=== PATIENT | female | born 1995 | race Caucasian/White ===

== ENCOUNTER → 2018-06-17 | Day surgery (SDC) | payer BC ==
[2018-06-11 13:36] VITALS: BMI 28.3
[~2018-06-17] MED LIST: SODIUM CHLORIDE 0.9% 1,000 ML IV SCH
[2018-06-17 08:40] VITALS: BP 110/57; PULSE 93; RESP 18; TEMP 97.8
== END ==
LOC: CATHEP 08:07
PROVIDERS: ATTEND Internal Medicine Clinical Cardiac Electrophysiology
DX: Z53.9 Procedure and treatment not carried out, unspecified reason (principal); R55 Syncope and collapse; R07.89 Other chest pain
CPT/HCPCS: 81025; 93660

== ENCOUNTER 2018-10-22 06:00 | Inpatient (IN) | payer BC, OTHER ==
[2018-10-22] MEDS ORDERED: METHYLERGONOVINE 0.2 MG/ML 1 ML AMP IM PRN (06:56)
[2018-10-22] MEDS ORDERED: OXYTOCIN 10 UNIT/ML 1 ML VIAL IM PRN (06:56)
[2018-10-22] MEDS ORDERED: TERBUTALINE 1 MG/ML VIAL SQ PRN (06:56)
[2018-10-22] MEDS ORDERED: CARBOPROST TROMETHAMINE 250 MCG/ML 1 ML AMP IM PRN (06:56)
[2018-10-22] MEDS ORDERED: LIDOCAINE 0.5% (PF) 5 MG/ML (50 ML SDV) SQ PRN (06:56)
[2018-10-22] MEDS ORDERED: OXYTOCIN 20 UNITS/1000 ML NS 1,000 ML IV SCH ×2 (07:00→22:45)
[2018-10-22] MEDS: LACTATED RINGERS 1,000 ML IV SCH ×3 (07:15→15:49)
[2018-10-22 07:17] VITALS: BMI 31.6
[2018-10-22 07:18] LABS: Basophils % (A) 0 %; Eosinophils # (A) 0.2 k/uL (0-0.7); Eosinophils % (A) 2 %; HCT 34.2 % (34.0-46.0); HGB 11.6 gm/dL (11.4-16.0); Lymphocytes # (A) 2.6 k/uL (1.0-4.8); Lymphocytes % (A) 21 %; MCH 27.3 pg (25.0-35.0); MCV 80.3 fL (80.0-100.0); Mean Platelet Volume 6.9; Monocytes # (A) 0.4 k/uL (0-1.0); Monocytes % (A) 3 %; Neutrophils # (A) 8.8 k/uL (1.3-7.7); Neutrophils % (A) 72 %; Platelet Count 303 k/uL (150-450); RBC 4.26 m/uL (3.80-5.40); RDW 14.4 % (11.5-15.5); WBC 12.1 k/uL (3.8-10.6)
[2018-10-22] MEDS ORDERED: BUTORPHANOL 1 MG/ML 1 ML VIAL IV PRN (08:45)
--- NOTE | 2018-10-22 08:50 | P.HPOB ---
History of Present Illness H&P Date: 10/22/18 Chief Complaint: 40-6/7 weeks, induction The patient is a 23-year-old 1 para 0 admitted at 40-6/7 weeks as determined by 25 week ultrasound. She is admitted for postdates induction with all signs reassuring. Her has been uncomplicated aside from late care having presented at approximately 25 weeks of . testing since her due date has been normal and the amniotic fluid index is normal as well. Group B strep status is negative. Obstetrical history: 1 para 0 with current statistics listed in history of present illness. EDC of 10/16/2018 was determined by a 25 week ultrasound. Laboratory workup done demonstrates a blood type of B+ with a negative antibody screen. Rubella status is immune. The remainder of the laboratory workup was within normal limits aside from an initial positive urine culture which was treated, and cured. One hour Glucola was within normal limits and group B strep status is negative. Gynecologic history: Unremarkable with no history of any infections to include STDs. Review of Systems Review of systems is confined to history of present illness. Past Medical History Additional Past Medical History / Comment(s): "fainting"; 06/2018 History of Any Multi-Drug Resistant Organisms: None Reported Past Surgical History: Appendectomy, Orthopedic Surgery Additional Past Surgical History / Comment(s): Elbow surgery Past Anesthesia/Blood Transfusion Reactions: No Reported Reaction Past Psychological History: Anxiety, Depression Smoking Status: Never smoker Past Alcohol Use History: None Reported Past Drug Use History: None Reported - Past Family History Mother Family Medical History: No Reported History Medications and Allergies Home Medications Medication Instructions Recorded Confirmed Type Pnv No.95/Ferrous Fum/Folic AC 1 each PO DAILY 10/22/18 10/22/18 History [ Multivitamin Tablet] Allergies Allergy/AdvReac Type Severity Reaction Status Date / Time No Known Allergies Allergy Verified 10/22/18 06:54 Exam Vital Signs Temp Pulse Resp BP Pulse Ox 10/22/18 06:53 97.4 F L 90 16 128/64 98 Intake and Output 10/21/18 10/22/18 10/22/18 22:59 06:59 14:59 Other: Weight 83.461 kg In general, this is a well-developed, well-nourished white female in no acute distress. Her heart has a regular rhythm and rate without murmur. Her lungs are clear to auscultation bilaterally in all duggan. Her abdomen is gravid, nondistended, has normal active bowel sounds, is soft, nontender, and without any palpable masses aside from uterine fundus. Her extremities are without any cyanosis, clubbing, or edema and are nontender to palpation bilaterally. Digital cervical examination on straights her cervix to be 2+ centimeters dilated, approximately 50% effaced, the vertex in presentation at -2-3 station. Artificial rupture of membranes is carried out demonstrating clear fluid. Results Result Diagrams: 10/22/18 07:00 Abnormal Lab Results - Last 24 Hours (Table) 10/22/18 Range/Units 07:00 WBC 12.1 H (3.8-10.6) k/uL Neutrophils # 8.8 H (1.3-7.7) k/uL Assessment and Plan (1) Post-dates Current Visit: Yes Status: Acute Code(s): O48.0 - POST-TERM SNOMED Code(s): 67560754 Plan: The patient is admitted for postdates induction of labor. She has had Pitocin augmentation started and undergone artificial rupture of membranes for clear fluid. She will have close maternal and surveillance and expectant management will be practiced. She is a good candidate for either IV or epidural analgesia, whichever she may choose.
[2018-10-22] MEDS ORDERED: SODIUM CHLORIDE 0.9% 100 ML BAG ONE (15:17)
[2018-10-22] MEDS ORDERED: ROPIVACAINE 5MG/ML 20ML VIAL ONE (15:17)
[2018-10-22] MEDS ORDERED: fentaNYL (PF) 50 MCG/ML 5 ML AMP ONE (15:17)
[2018-10-22] MEDS ORDERED: ceFAZolin 1,000 MG VIAL ONE (21:46)
[2018-10-22] MEDS ORDERED: ONDANSETRON 4 MG/2 ML VIAL ONE (21:46)
[2018-10-22] MEDS ORDERED: LACTATED RINGERS 1,000 ML BAG IV ONE (21:46)
[2018-10-22] MEDS ORDERED: OXYTOCIN 10 UNIT/ML 1 ML VIAL ONE (21:46)
[2018-10-22] MEDS ORDERED: LANOLIN CREAM 5 GM TUBE TOPICAL PRN (22:40)
[2018-10-22] MEDS ORDERED: NALOXONE 0.4 MG/ML 1 ML VIAL IV PRN (22:40)
[2018-10-22] MEDS ORDERED: diphenhydrAMINE 25 MG CAP PO PRN (22:40)
[2018-10-22] MEDS ORDERED: ZOLPIDEM 5 MG TAB PO PRN (22:40)
[2018-10-22] MEDS ORDERED: SIMETHICONE 80 MG CHEWABLE PO PRN (22:40)
[2018-10-22] MEDS ORDERED: ACETAMINOPHEN TAB 325 MG TAB PO PRN (22:40)
[2018-10-22] MEDS ORDERED: diphenhydrAMINE 50 MG/ML 1 ML VIAL IVP PRN ×2 (22:40)
[2018-10-22] MEDS ORDERED: diphenhydrAMINE 50 MG CAP PO PRN (22:40)
[2018-10-22] MEDS ORDERED: ONDANSETRON 4 MG/2 ML VIAL IVP PRN (22:40)
[2018-10-22] MEDS ORDERED: METOCLOPRAMIDE 5 MG/ML 2 ML VIAL IVP PRN (22:40)
[2018-10-22] MEDS ORDERED: HYDROcodone/APAP 7.5-325MG 1 EACH TAB PO PRN (22:40)
--- NOTE | 2018-10-22 22:50 | P.OP ---
Date of Procedure: 10/22/18 Preoperative Diagnosis: #1. 40-6/7 weeks, induction #2. Arrest of dilation and descent Postoperative Diagnosis: Same plus #3. occiput posterior, brow presentation Procedure(s) Performed: #1. Primary low-transverse section Anesthesia: epidural Surgeon: Cj Wood Customer Assistance Representative #1: Viola Martin Estimated Blood Loss (ml): 600 IV fluids (ml): 800 Urine output (ml): 400 Pathology: none sent Condition: stable Disposition: floor Operative Findings: Preoperatively, the patient progressed to approximately 6-7 cm with the station still at -3. She remained at that dilation and station for approximately 8-9 hours at which time the decision was made to proceed to the operating room for arrest of dilation and descent. There was a strong consideration for malposition. Intraoperatively, the patient was delivered of a viable 8 lbs. 11 oz. baby boy with Apgars of 7 at 1 minute and 9 at 5 minutes in the direct occiput posterior position with brow presenting to the pelvic outlet. A mighty Vac vacuum was needed to deliver the head and was incidentally placed near to the anterior portion of the head then the occiput as that was what was available in presentation in the pelvis. The placenta was delivered manually, intact, and grossly normal with a grossly normal three- vessel cord. The uterus, tubes, and ovaries were entirely normal to inspection. Description of Procedure: The patient was prepped and draped in usual fashion after epidural anesthesia was bolused by the anesthesiologist. A Pfannenstiel incision was made and extended into the abdominal cavity without difficulty. The bladder was noted to be well below the intended site of incision and the bladder peritoneum was left intact. A 2 cm incision was made in the transverse plane of the lower uterine segment to enter the uterus at which time clear fluid was again noted. The incision was extended in both directions bluntly. The head was encountered in the pelvis and delivered up to the incision at which time the angles were difficult to elevate the head through the incision. A mighty Vac vacuum was attached to the presenting portion and the incision and actually popped off twice while attempting to elevate the head. On the third attempt, the head was delivered through the incision in the direct occiput posterior position and it was noted that the brow had been the presenting part. Remainder of the was delivered onto the field after suctioning the nose and mouth. The cord was doubly clamped, cut, and the passed resuscitative measures with weight and Apgars as noted above. The placenta was delivered manually and intact as noted above. The uterus was exteriorized and the interior cavity of the uterus swept of any remaining placental or membranous fragments. The margins of the incision were grasped with Choi clamps and the incision closed in 2 layers. The first layer was a running locking stitch of 0 chromic catgut from margin to margin followed by a running imbricating layer of 0 chromic catgut from margin to margin. The posterior cul- de-sac was suctioned using a guard. The uterus was replaced within the abdominal cavity and the gutters were swept of any remaining blood, fluid, or clot. The incision was reexamined with some bleeding noted to be ongoing at the right side of the incision. This was made hemostatic with 2 figure-of- eight stitches of 0 chromic catgut. Once hemostasis had been established, the parietal peritoneum was reapproximated loosely in the layer of muscles examined and found to be hemostatic. Fascia was closed with 2 running stitches of 0 Vicryl proceeding from the lateral margins to the midpoint. The subcutaneous tissues were irrigated, made hemostatic with the Bovie, and reapproximated with a running stitch of 30 plain catgut. The skin was reapproximated with a running subcuticular stitch of 4-0 Vicryl followed by half-inch Steri-Strips placed with Mastisol. Estimated blood loss for the case is approximately 600 mL. There were no complications. All sponge, instrument, and needle counts were correct. Both mother and are resting comfortably in recovery.
[2018-10-22] MEDS: KETOROLAC 30 MG/ML 1 ML VIAL IVP PRN (23:32)
[2018-10-23] MEDS: LACTATED RINGERS 1,000 ML IV SCH (01:58)
[2018-10-23] MEDS: KETOROLAC 30 MG/ML 1 ML VIAL IVP PRN ×3 (05:18→23:20)
[2018-10-23 06:59] LABS: Basophils % (A) 0 %; Eosinophils # (A) 0.1 k/uL (0-0.7); Eosinophils % (A) 0 %; HCT 29.2 % (34.0-46.0); Lymphocytes # (A) 1.7 k/uL (1.0-4.8); Lymphocytes % (A) 11 %; MCH 26.6 pg (25.0-35.0); MCHC 33.1 g/dL (31.0-37.0); MCV 80.5 fL (80.0-100.0); Monocytes # (A) 0.4 k/uL (0-1.0); Monocytes % (A) 3 %; Neutrophils # (A) 12.2 k/uL (1.3-7.7); Neutrophils % (A) 84 %; Platelet Count 210 k/uL (150-450); RBC 3.63 m/uL (3.80-5.40); RDW 14.1 % (11.5-15.5); WBC 14.5 k/uL (3.8-10.6)
[2018-10-23 07:00] LABS: HGB 9.7 gm/dL (11.4-16.0)
[2018-10-23] MEDS ORDERED: NALOXONE 0.4 MG/ML 1 ML VIAL IV PRN (07:13)
[2018-10-23] MEDS ORDERED: MORPHINE SULFATE 2 MG/ML SYRINGE IVP PRN (07:13)
--- NOTE | 2018-10-23 07:15 | P.PN ---
Progress Note - Text Progress Note Date: 10/23/18 Postoperative day 1 status post section under epidural anesthesia, and epidural morphine given for postoperative analgesia, patient doing well, there is no anesthesia related complications, Patient had no headache, vital signs stable , Assessment and plan= postop day 1 status post , doing well there is no anesthesia related complication.
--- NOTE | 2018-10-23 08:51 | P.PNOBGPC ---
Subjective - Subjective Patient reports: Reports appetite normal, Reports voiding normally, Reports pain well controlled, Reports ambulating normally : doing well, nursing well Objective - Vital Signs Latest vital signs: Vital Signs Temp Pulse Resp BP Pulse Ox 10/23/18 08:00 97.7 F 76 15 107/60 10/23/18 04:00 98.5 F 81 16 107/67 10/23/18 00:45 98.5 F 73 16 117/61 10/23/18 00:15 99.1 F 77 16 116/58 10/22/18 23:45 99.0 F 81 16 115/69 97 10/22/18 23:30 99 16 120/73 10/22/18 23:15 87 16 129/78 100 10/22/18 23:00 98.9 F 83 16 125/74 98 10/22/18 22:45 98.8 F 99 16 122/71 99 Intake and Output 10/22/18 10/23/18 10/23/18 22:59 06:59 14:59 Intake Total 675 600 Output Total 1100 Balance 675 -500 Intake: IV 375 Lactated Ringers 1,000 ml 375 @ 125 mls/hr IV .Q8H [facility] Rx#:[id number] Oral 300 600 Output: Urine 1100 Other: Weight 83.461 kg - Exam Extremities: Present: normal Abdomen: Present: normal appearance, soft. Absent: distention, tenderness Incision: Present: normal, dry, intact Uterus: Present: normal, firm (The uterine fundus is tonic and nontender below the umbilicus.) - Labs Labs: Abnormal Lab Results - Last 24 Hours (Table) 10/23/18 Range/Units 06:22 WBC 14.5 H (3.8-10.6) k/uL RBC 3.63 L (3.80-5.40) m/uL Hgb 9.7 L D (11.4-16.0) gm/dL Hct 29.2 L (34.0-46.0) % Neutrophils # 12.2 H (1.3-7.7) k/uL Assessment and Plan (1) Post-dates Current Visit: Yes Status: Acute Code(s): O48.0 - POST-TERM SNOMED Code(s): 23509614 (2) S/P section Current Visit: Yes Status: Acute Code(s): Z98.891 - HISTORY OF UTERINE SCAR FROM PREVIOUS SURGERY SNOMED Code(s): 634836307 Plan: Continue routine postoperative care. She is receiving a regular diet this morning. I have strongly encouraged her to ambulate in the hallways at least 4 times daily. Possible discharge home tomorrow pending complications. Circumcision will likely be done tomorrow as well.
[2018-10-23] MEDS: SENNOSIDES-DOCUSATE SODIUM 1 EACH TAB PO SCH (15:35)
[2018-10-23] MEDS: HYDROcodone/APAP 5-325MG 1 EACH TAB PO PRN (20:14)
[2018-10-23] MEDS ORDERED: INFLUENZA VACCINE (6 MOS+) 60 MCG/0.5 ML SYRINGE IM ONE (20:15)
[2018-10-24] MEDS: LACTATED RINGERS 1,000 ML IV SCH (00:52)
[2018-10-24] MEDS: SENNOSIDES-DOCUSATE SODIUM 1 EACH TAB PO SCH ×3 (00:52→20:53)
[2018-10-24] MEDS: IBUPROFEN 600 MG TAB PO PRN (05:27)
[2018-10-24 08:05] VITALS: RESP 16
--- NOTE | 2018-10-24 10:29 | P.PNOBGPC ---
Subjective - Subjective Patient reports: Reports appetite normal, Reports voiding normally, Reports pain well controlled, Reports ambulating normally : doing well Objective - Vital Signs Latest vital signs: Vital Signs Temp Pulse Resp BP BP Pulse Ox 10/24/18 08:00 98.3 F 78 16 99/60 10/24/18 00:00 98.2 F 95 18 123/73 97 10/23/18 22:00 18 10/23/18 20:00 98.1 F 104 H 18 116/65 98 10/23/18 18:00 15 10/23/18 15:32 99.2 F 99 15 115/69 96 10/23/18 11:50 97.4 F L 101 H 15 100 Intake and Output 10/23/18 10/24/18 10/24/18 22:59 06:59 14:59 Intake Total 600 Output Total 1000 Balance -400 Intake: Oral 600 Output: Urine 1000 Other: # Voids 1 1 - Exam Extremities: Present: normal Abdomen: Present: normal appearance, soft. Absent: distention, tenderness Incision: Present: normal, dry, intact Uterus: Present: normal, firm (The uterine fundus is tonic and nontender below the umbilicus.) Assessment and Plan (1) Post-dates Current Visit: Yes Status: Acute Code(s): O48.0 - POST-TERM SNOMED Code(s): 69652988 (2) S/P section Current Visit: Yes Status: Acute Code(s): Z98.891 - HISTORY OF UTERINE SCAR FROM PREVIOUS SURGERY SNOMED Code(s): 734550315 Plan: The patient has opted to remain in the hospital for another day. We will continue routine postoperative care with anticipated discharge home tomorrow. She has been encouraged to continue to ambulate routinely in the hallways. She is otherwise performing all activities of daily living without difficulty.
[2018-10-24] MEDS: HYDROcodone/APAP 5-325MG 1 EACH TAB PO PRN (16:02)
[2018-10-25] MEDS: IBUPROFEN 600 MG TAB PO PRN ×4 (01:27→23:43)
--- NOTE | 2018-10-25 09:20 | P.DS ---
Providers Date of admission: 10/22/18 06:42 Expected date of discharge: 10/25/18 Attending physician: Cj Wood Primary care physician: Stated None Hospital Course: This is a pleasant 23-year-old 1 para 0 at 40-6/7 weeks that was admitted to labor and delivery for a postdates induction with Dr. Sumner. had been uncomplicated aside from late care she presented at 25 weeks of . All testing has been negative throughout, group beta strep was negative. She was admitted to labor and delivery and Pitocin induction of labor was begun. Patient progressed to 6-7 cm and was noted to have arrest of first stage of labor. Patient was taken for primary low transverse section secondary to this. For further details on the C- section please see the operative report. Patient delivered a viable male infant weighing 8 lbs. 11 oz. with Apgars of 7 and 9 at one and 5 minutes respectively. Patient's postoperative course has been uneventful. On this postop day #3 she is ambulating and voiding without difficulty. She is tolerating a regular diet without nausea or vomiting. She states her lochia is minimal and she denies pain. Patient Condition at Discharge: Good Plan - Discharge Summary New Discharge Prescriptions: No Action Pnv No.95/Ferrous Fum/Folic AC [ Multivitamin Tablet] 1 each PO DAILY Discharge Medication List Pnv No.95/Ferrous Fum/Folic AC [ Multivitamin Tablet] 1 each PO DAILY [History] Follow up Appointment(s)/Referral(s): Cj Wood MD [STAFF PHYSICIAN] - 2 Weeks Patient Instructions/Handouts: (DC), (GEN) Discharge Disposition: HOME SELF-CARE
[2018-10-25] MEDS: SENNOSIDES-DOCUSATE SODIUM 1 EACH TAB PO SCH (11:11)
[2018-10-26] MEDS: SENNOSIDES-DOCUSATE SODIUM 1 EACH TAB PO SCH ×2 (03:40→08:32)
[2018-10-26] MEDS: IBUPROFEN 600 MG TAB PO PRN (08:32)
[2018-10-26 08:40] VITALS: BP 127/72; PULSE 74; TEMP 98.4
--- NOTE | 2018-10-26 09:35 | P.PNOBGPC ---
Subjective - Subjective Principal diagnosis: POD4 LTCS Interval history: Patient continues to do well postoperatively. She did end up staying overnight secondary to a pediatric issue. They were watching the bilirubin level on the VB. She denies concerns today and understands that on postop day #4 she is to be discharged home. Patient reports: Reports appetite normal, Reports voiding normally, Reports pain well controlled, Reports ambulating normally : doing well Objective - Vital Signs Latest vital signs: Vital Signs Temp Pulse Resp BP Pulse Ox 10/26/18 08:00 98.4 F 74 16 127/72 10/25/18 23:33 97.8 F 70 16 117/75 98 10/25/18 16:00 98.2 F 89 16 128/66 - Exam Extremities: Present: edema Abdomen: Present: normal appearance, soft Incision: Present: normal, intact Uterus: Present: normal, firm Assessment and Plan (1) Arrest of descent, delivered, current hospitalization Current Visit: Yes Status: Acute Code(s): O62.1 - SECONDARY UTERINE INERTIA SNOMED Code(s): 23736375 (2) Arrest of dilation, delivered, current hospitalization Current Visit: Yes Status: Acute Code(s): O62.1 - SECONDARY UTERINE INERTIA SNOMED Code(s): 86676648 (3) malposition, delivered, current hospitalization Current Visit: Yes Status: Acute Code(s): O32.9XX0 - MATERNAL CARE FOR MALPRESENTATION OF FETUS, UNSP, UNSP SNOMED Code(s): 382924201 (4) Late care Current Visit: Yes Status: Acute Code(s): O09.30 - SUPRVSN OF PREG W INSUFFICIENT ANTENAT CARE, UNSP TRIMESTER SNOMED Code(s): 946375092 (5) Post-dates Current Visit: Yes Status: Acute Code(s): O48.0 - POST-TERM SNOMED Code(s): 80882210 (6) S/P section Current Visit: Yes Status: Acute Code(s): Z98.891 - HISTORY OF UTERINE SCAR FROM PREVIOUS SURGERY SNOMED Code(s): 008531296 Plan: Plan discharge home today. Routine postoperative follow-up with Dr. Wood in 2 weeks. Discharge instructions are reviewed with the patient and questions are answered.
== END 2018-10-26 12:35 | disposition home or self-care (01) | DRG 788 ==
LOC: 4FBP 06:42
PROVIDERS: ADMIT Obstetrics & Gynecology; ATTEND Obstetrics & Gynecology
PROC: 3E033VJ Introduction of Other Hormone into Peripheral Vein, Percutaneous Approach (ICD-10-PCS; principal; 2018-10-22 21:59)
PROC: 10907ZC Drainage of Amniotic Fluid, Therapeutic from Products of Conception, Via Natural or Artificial Opening (ICD-10-PCS; principal; 2018-10-22 21:59)
PROC: 10D00Z1 Extraction of Products of Conception, Low, Open Approach (ICD-10-PCS; principal; 2018-10-22 21:59)
DX: O64.8XX0 Obstructed labor due to other malposition and malpresentation, not applicable or unspecified (principal); O48.0 Post-term pregnancy; Z37.0 Single live birth; Z3A.40 40 weeks gestation of pregnancy; O62.1 Secondary uterine inertia
CPT/HCPCS: 85025; 86850; 86900; 86901; 90686

== ENCOUNTER 2019-10-21 09:56 | Inpatient (IN) | payer BC, OTHER ==
[2019-10-15 14:25] VITALS: BMI 30.8
--- NOTE | 2019-10-20 16:53 | P.HPOB ---
History of Present Illness H&P Date: 10/20/19 Chief Complaint: Intrauterine at term: Previous section Patient is a 24-year-old at 39 weeks gestation with prior section who desires repeat section, declining . Risks/benefits/alternatives have been discussed with the patient in detail and all questions were answered for her prior to proceeding to the operating room. Her pertinent history is essentially an unremarkable but she didn't initiate care late. She did have baby in October 2018 and she thinks maybe only had 1 cycle since that time. She did have twice weekly nonstress tests over the latter part of the as a precaution. Otherwise she did well. Past Medical History Past Medical History: No Reported History Additional Past Medical History / Comment(s): "fainting"; 06/2018 History of Any Multi-Drug Resistant Organisms: None Reported Past Surgical History: Appendectomy, Section, Orthopedic Surgery Additional Past Surgical History / Comment(s): Elbow surgery Past Anesthesia/Blood Transfusion Reactions: No Reported Reaction Smoking Status: Never smoker - Past Family History Mother Family Medical History: No Reported History Medications and Allergies Home Medications Medication Instructions Recorded Confirmed Type Pnv No.95/Ferrous Fum/Folic AC 1 each PO DAILY 10/22/18 10/15/19 History [ Multivitamin Tablet] Allergies Allergy/AdvReac Type Severity Reaction Status Date / Time No Known Allergies Allergy Verified 10/15/19 14:23 Exam Osteopathic Statement: *. No significant issues noted on an osteopathic structural exam other than those noted in the History and Physical/Consult. - OBG Physical Exam Breast: both: normal (no masses) Abdomen: bowel sounds normal, no diffuse tenderness, no bruit present, no guarding noted, no hepatomegaly, no splenomegaly, no mass Vulva: both: normal Vagina: normal moisture, no discharge Cervix: no lesion, no discharge Uterus: normal size, normal contour Adnexa: both: normal Anus/Rectum: normal perianal skin, no rectal mass, no hemorrhoids, heme negative
[2019-10-21] MEDS ORDERED: CITRIC ACID-SODIUM CITRATE 15 ML CUP PO ONE (10:08)
[2019-10-21 10:38] LABS: Basophils % (A) 0 %; Eosinophils # (A) 0.1 k/uL (0-0.7); Eosinophils % (A) 1 %; HCT 32.4 % (34.0-46.0); HGB 10.3 gm/dL (11.4-16.0); Hypochromasia Moderate; Lymphocytes # (A) 2.3 k/uL (1.0-4.8); Lymphocytes % (A) 16 %; MCH 23.6 pg (25.0-35.0); MCHC 31.9 g/dL (31.0-37.0); Mean Platelet Volume 7.2; Microcytosis Slight; Monocytes # (A) 0.5 k/uL (0-1.0); Monocytes % (A) 4 %; Neutrophils # (A) 11.3 k/uL (1.3-7.7); Neutrophils % (A) 78 %; Platelet Count 302 k/uL (150-450); Poikilocytosis Slight; RBC 4.37 m/uL (3.80-5.40); RDW 13.9 % (11.5-15.5); WBC 14.4 k/uL (3.8-10.6)
[2019-10-21] MEDS: LACTATED RINGERS 1,000 ML IV SCH ×4 (11:26→22:18)
[2019-10-21] MEDS ORDERED: NALBUPHINE 10 MG/ML (1 ML AMP) ONE (12:27)
[2019-10-21] MEDS ORDERED: OXYTOCIN 10 UNIT/ML 1 ML VIAL ONE (12:27)
[2019-10-21] MEDS ORDERED: MORPHINE SULFATE (PF) 0.3 MG/0.3 ML SYR ONE (12:27)
[2019-10-21] MEDS ORDERED: ONDANSETRON 4 MG/2 ML VIAL ONE (12:27)
[2019-10-21] MEDS ORDERED: KETOROLAC 30 MG/ML 1 ML VIAL ONE (12:27)
[2019-10-21] MEDS ORDERED: ePHEDrine SULFATE/0.9% NACL/PF 50 MG/5 ML SYRINGE IV ONE (12:27)
[2019-10-21] MEDS ORDERED: PHENYLEPHRINE-0.9% NACL SYG 1 MG/10 ML SYRINGE ONE (12:27)
[2019-10-21] MEDS ORDERED: NALBUPHINE 10 MG/ML (1 ML AMP) IV PRN (13:08)
[2019-10-21] MEDS ORDERED: KETOROLAC 30 MG/ML 1 ML VIAL IVP PRN ×2 (13:08→13:22)
[2019-10-21] MEDS ORDERED: NALOXONE 0.4 MG/ML 1 ML VIAL IV PRN ×2 (13:08→13:22)
[2019-10-21] MEDS ORDERED: HYDROmorphone 0.5 MG/0.5 ML SYRINGE IVP PRN (13:08)
[2019-10-21] MEDS ORDERED: diphenhydrAMINE 50 MG/ML 1 ML VIAL IVP PRN ×3 (13:08→13:22)
[2019-10-21] MEDS ORDERED: diphenhydrAMINE 50 MG CAP PO PRN (13:22)
[2019-10-21] MEDS ORDERED: diphenhydrAMINE 25 MG CAP PO PRN (13:22)
[2019-10-21] MEDS ORDERED: ZOLPIDEM 5 MG TAB PO PRN (13:22)
[2019-10-21] MEDS ORDERED: ONDANSETRON 4 MG/2 ML VIAL IVP PRN (13:22)
[2019-10-21] MEDS ORDERED: ACETAMINOPHEN TAB 325 MG TAB PO PRN (13:22)
[2019-10-21] MEDS ORDERED: METOCLOPRAMIDE 5 MG/ML 2 ML VIAL IVP PRN (13:22)
--- NOTE | 2019-10-21 13:31 | P.OP ---
Date of Procedure: 10/21/19 Preoperative Diagnosis: Intrauterine [place] term: Previous section Postoperative Diagnosis: Same with adhesions from the anterior uterus to the anterior abdominal wall Procedure(s) Performed: Repeat low transverse section with lysis of adhesions Anesthesia: spinal Surgeon: Benja Gay Line Staker #1: Charlene Bateman Estimated Blood Loss (ml): 800 IV fluids (ml): 1,000 Urine output (ml): 200 Pathology: none sent Condition: stable Disposition: floor Operative Findings: Male scores and weight are pending baby was taken to special care nursery Description of Procedure: Patient was taken to the operating suite where a spinal anesthetic was found be adequate. She was prepped and draped in normal sterile fashion and placed in dorsal supine position with leftward tilt. Initially a Pfannenstiel skin incision was made and this incision was then carried through to the underlying layer of the fascia with the second knife. Fascia was then nicked in the midline and this opening was extended laterally with Mandel scissors. Superior and inferior aspect of this incision were then grasped tented up and bluntly and sharply dissected off the rectus muscles. Rectus muscles were then divided midline and sharp dissection through the peritoneum was made. This opening was then extended superiorly and inferiorly with Metzenbaum scissors with good v isualization of both bowel bladder. Bladder blade was then placed in the bladder flap identified. It was entered sharply with Metzenbaums scissors carried across face uterus and then bluntly dissected out of the operative field. Knife was then used to incise uterus and this opening was fully developed with a hemostat and then extended bluntly. Once is accomplished head was attempted to be delivered. We're able to get about two thirds of the head to the biparietal diameter out but due to tightness of the anterior fashion and shape of her pelvic bones were unable to fully deliver the baby a vacuum was applied briefly for approximately 15 seconds on with the inflation to the lowest acceptable area however still the baby was not able to be fully delivered therefore vacuum was removed and with some further manipulation we were able to deliver the baby's head mouth nares bulb suctioned anterior posterior shoulders easily delivered followed by the remainder the baby. Umbilical cord was then clamped cut usual fashion an nursery personnel was present to assume care. Placenta was then delivered intact and Pitocin was added to the IV. On attempting to remove the uterus from the abdomen for exteriorization a proximally 1 cm thick band of scar tissue was noted from the anterior uterine wall to the anterior abdominal wall it was doubly ligated and cut and we're able to remove the uterus without difficulty. There was second large band of tissue on the left side of the uterus as well we did do a thorough exam there was brown ligaments present bilaterally there was full been tubes and ovaries also present bilaterally and these were without any abnormalities due to the significant size and limit of movement of the uterus with suspicion that she would have pelvic pain in the future if this was not relieved this scar tissue was also also doubly ligated and cut allowing freedom of movement for the uterus examining it the scar tissue did and immediately into the peritoneal layer. Once this was accomplished 0 Vicryl suture was used to reapproximate the uterine incision in 2 layers and once excellent hemostasis was obtained blood and debris was suctioned from the posterior cul-de-sac and uterus was reinserted into the abdomen. Peritoneal layer was then closed with 0 Vicryl suture. Fascial layer was closed with 0 Vicryl suture. One layer of 3-0 Vicryl was placed in the deep subcuticular tissues reapproximate the skin and close the space. Skin was then closed with 3-0 Vicryl subcuticular. Sponge, lap, needle counts were all correct 2. Patient was then taken to the recovery room in stable and satisfactory condition.
[2019-10-21] MEDS: SENNOSIDES-DOCUSATE SODIUM 1 EACH TAB PO SCH (22:19)
[2019-10-22] MEDS: LACTATED RINGERS 1,000 ML IV SCH (01:41)
--- NOTE | 2019-10-22 06:57 | P.PN ---
Progress Note - Text Progress Note Date: 10/22/19 Postoperative day 1 status post section under spinal anesthesia, and i ntrathecal morphine given for postoperative analgesia, patient doing well, there is no anesthesia related complications, Patient had no headache, vital signs stable , Assessment and plan= postop day 1 status post , doing well there is no anesthesia related complication.
[2019-10-22 07:02] LABS: Basophils % (A) 0 %; Eosinophils % (A) 0 %; HCT 27.3 % (34.0-46.0); Hypochromasia Moderate; Lymphocytes # (A) 1.9 k/uL (1.0-4.8); Lymphocytes % (A) 13 %; MCH 23.9 pg (25.0-35.0); MCHC 32.1 g/dL (31.0-37.0); MCV 74.3 fL (80.0-100.0); Mean Platelet Volume 7.4; Microcytosis Slight; Monocytes # (A) 0.5 k/uL (0-1.0); Monocytes % (A) 4 %; Neutrophils % (A) 82 %; Platelet Count 232 k/uL (150-450); Poikilocytosis Slight; RBC 3.68 m/uL (3.80-5.40); RDW 13.7 % (11.5-15.5); WBC 14.6 k/uL (3.8-10.6)
[2019-10-22 07:04] LABS: HGB 8.8 gm/dL (11.4-16.0)
[2019-10-22] MEDS: IBUPROFEN 600 MG TAB PO PRN ×2 (08:50→19:01)
[2019-10-22] MEDS: SENNOSIDES-DOCUSATE SODIUM 1 EACH TAB PO SCH ×2 (08:50→22:29)
--- NOTE | 2019-10-22 09:04 | P.PNOBGPC ---
Subjective - Subjective Principal diagnosis: Postop day 1: section Interval history: Overall Debra is doing well postop day 1. She is ambulating, voiding, and she is tolerating her diet. Her pain is well-controlled this time. Vital signs are stable and afebrile. Heart regular lungs clear abdomen abdomen is soft. Incision is intact. Patient reports: Reports appetite normal, Reports voiding normally, Reports pain well controlled, Reports ambulating normally [place]: in NICU Objective - Vital Signs Latest vital signs: Vital Signs Temp Pulse Resp BP Pulse Ox 10/22/19 08:00 98 F 74 16 110/72 10/22/19 06:00 14 10/22/19 04:00 98.2 F 98 16 112/70 99 10/22/19 02:00 14 10/21/19 23:45 97.9 F 79 16 110/62 98 10/21/19 22:00 16 10/21/19 20:00 98.0 F 83 16 115/68 98 10/21/19 16:08 16 10/21/19 15:30 71 16 99/53 100 10/21/19 15:00 92 16 108/57 100 10/21/19 14:30 96.6 F L 69 16 93/55 100 10/21/19 14:15 85 16 111/56 99 10/21/19 14:08 16 99 10/21/19 14:00 78 16 117/63 100 10/21/19 13:45 96.3 F L 78 16 111/66 99 10/21/19 13:30 96.5 F L 83 16 112/63 97 10/21/19 13:08 16 96 10/21/19 10:08 97.9 F 105 H 16 103/66 99 Intake and Output 10/21/19 10/22/19 10/22/19 22:59 06:59 14:59 Intake Total 300 300 Output Total 350 800 800 Balance -50 -500 -800 Intake: Other 300 300 Output: Urine 350 800 800 Uretheral ([place]) 200 Other: Voiding Method Indwelling Catheter # Voids 1 - Exam Lungs: bilateral: normal Chest: Normal S1, Normal S2 Extremities: Present: normal Abdomen: Present: normal appearance, soft. Absent: distention, tenderness Incision: Present: normal, dry, intact Uterus: Present: normal, firm - Labs Labs: Abnormal Lab Results - Last 24 Hours (Table) 10/21/19 10/22/19 Range/Units 10:10 06:40 WBC 14.4 H 14.6 H (3.8-10.6) k/uL RBC 3.68 L (3.80-5.40) m/uL Hgb 10.3 L 8.8 L D (11.4-16.0) gm/dL Hct 32.4 L 27.3 L (34.0-46.0) % MCV 74.0 L 74.3 L (80.0-100.0) fL MCH 23.6 L 23.9 L (25.0-35.0) pg Neutrophils # 11.3 H 12.0 H (1.3-7.7) k/uL
[2019-10-22] MEDS: HYDROcodone/APAP 7.5-325MG 1 EACH TAB PO PRN ×2 (11:29→22:28)
[2019-10-23] MEDS: IBUPROFEN 600 MG TAB PO PRN ×3 (03:33→23:44)
[2019-10-23] MEDS: HYDROcodone/APAP 7.5-325MG 1 EACH TAB PO PRN ×2 (07:33→14:51)
[2019-10-23] MEDS: SENNOSIDES-DOCUSATE SODIUM 1 EACH TAB PO SCH ×2 (07:33→21:52)
--- NOTE | 2019-10-23 08:55 | P.PNOBGPC ---
Subjective - Subjective Principal diagnosis: Postop day 2 Interval history: Overall patient is doing very well postop day 2. She is involuting, voiding and tolerating her diet. She voices no complaints and is on a regular diet at this time. Heart regular, lungs clear, extremities without pain. Abdomen soft positive bowel sounds are noted and her incision is otherwise clean dry and intact. Patient reports: Reports appetite normal, Reports voiding normally, Reports pain well controlled, Reports ambulating normally [place]: in NICU Objective - Vital Signs Latest vital signs: Vital Signs Temp Pulse Resp BP Pulse Ox 10/23/19 07:49 98.0 F 84 17 111/64 100 10/23/19 00:00 98.4 F 77 16 105/68 98 10/22/19 15:24 98.2 F 80 16 94/64 10/22/19 11:34 70 16 103/62 10/22/19 11:32 70 16 103/62 - Exam Lungs: bilateral: normal Chest: Normal S1, Normal S2 Extremities: Present: normal Abdomen: Present: normal appearance, soft. Absent: distention, tenderness Incision: Present: normal, dry, intact Uterus: Present: normal, firm
--- NOTE | 2019-10-24 07:27 | P.PNOBGPC ---
Subjective - Subjective Patient reports: Reports appetite normal, Reports voiding normally, Reports pain well controlled, Reports ambulating normally : doing well, in NICU Objective - Vital Signs Latest vital signs: Vital Signs Temp Pulse Resp BP Pulse Ox 10/24/19 00:00 98.1 F 83 16 115/67 99 10/23/19 15:28 97.5 F L 84 17 105/62 10/23/19 07:49 98.0 F 84 17 111/64 100 - Exam Lungs: bilateral: normal Chest: Normal S1, Normal S2 Extremities: Present: normal Abdomen: Present: normal appearance, soft. Absent: distention, tenderness Incision: Present: normal, dry, intact Uterus: Present: normal, firm Assessment and Plan Assessment: Postoperative day #3. Patient is resting without new complaints. Vital signs are stable she is afebrile and her incision is intact and dry. Patient's hemoglobin postoperatively was 8.8 therefore I am going to start her on some iron. Baby is still in special care patient would like to stay therefore we'll probably discharge home tomorrow. Plan today is to continue ambulation and institute iron therapy. (1) S/P section Current Visit: No Status: Acute Code(s): Z98.891 - HISTORY OF UTERINE SCAR FROM PREVIOUS SURGERY SNOMED Code(s): 699550526
[2019-10-24] MEDS: IRON AG/C/B12/CA/SUC.ACID/STOM 1 EACH TAB PO SCH (09:01)
[2019-10-24] MEDS: HYDROcodone/APAP 7.5-325MG 1 EACH TAB PO PRN (09:01)
[2019-10-24] MEDS: SENNOSIDES-DOCUSATE SODIUM 1 EACH TAB PO SCH ×2 (09:03→23:45)
[2019-10-24] MEDS: IBUPROFEN 600 MG TAB PO PRN (23:44)
[2019-10-25 01:33] VITALS: RESP 16
--- NOTE | 2019-10-25 06:47 | P.PNOBGPC ---
Subjective - Subjective Patient reports: Reports appetite normal, Reports voiding normally, Reports pain well controlled, Reports ambulating normally : doing well, in NICU (Probably going home today) Objective - Vital Signs Latest vital signs: Vital Signs Temp Pulse Resp BP Pulse Ox 10/25/19 00:00 98.2 F 78 16 110/62 10/24/19 16:00 98.5 F 86 18 111/59 98 10/24/19 08:00 97.9 F 89 18 105/71 97 - Exam Lungs: bilateral: normal Chest: Normal S1, Normal S2 Extremities: Present: normal Abdomen: Present: normal appearance, soft. Absent: distention, tenderness Incision: Present: normal, dry, intact Uterus: Present: normal, firm Assessment and Plan Assessment: Patient is resting without new complaints. Vital signs are stable she is afebrile. Her baby is in the special care however most likely will go home today as long as his bilirubin is okay. Patient's incision is intact and dry. She is ambulating and urinating without difficulty and tolerating regular diet. My impression is a normal postoperative course with secondary anemia, chronic anemia. Plan is to discharge home later today (1) S/P section Current Visit: No Status: Acute Code(s): Z98.891 - HISTORY OF UTERINE SCAR FROM PREVIOUS SURGERY SNOMED Code(s): 518738265
--- NOTE | 2019-10-25 06:57 | P.DS ---
Providers Date of admission: 10/21/19 09:56 Expected date of discharge: 10/25/19 Attending physician: Benja Gay Primary care physician: Stated None - Discharge Diagnosis(es) (1) S/P section Current Visit: No Status: Acute Hospital Course: Please see dictated H&P for intimate details of this patient's admission. Brief summary this is a 24-year-old 2 para 1 female 39 and one sevenths weeks gestation who is admitted to labor and delivery for elective repeat section. Please see dictated admission history and physical and operative note per Dr. Gay. By postoperative day #4 she is felt to be stable for discharge home. Postoperative course complicated by anemia which is felt to be chronic in etiology. Procedures: Repeat low transverse section Patient Condition at Discharge: Good Plan - Discharge Summary Discharge Rx Participant: No New Discharge Prescriptions: New Ibuprofen [Motrin] 600 mg PO Q6HR PRN #40 tab PRN Reason: Mild Pain Or Fever >= 100.5 Iron Ag/C/B12/Ca/Suc.acid/Stom [Multigen] 1 each PO DAILY #30 tab HYDROcodone/APAP 7.5-325MG [[place] 7.5-325] 1 each PO Q6H PRN #12 tab PRN Reason: Severe Pain No Action Pnv No.95/Ferrous Fum/Folic AC [ Multivitamin Tablet] 1 each PO DAILY Discharge Medication List Pnv No.95/Ferrous Fum/Folic AC [ Multivitamin Tablet] 1 each PO DAILY 10/22/18 [History] HYDROcodone/APAP 7.5-325MG [[place] 7.5-325] 1 each PO Q6H PRN #12 tab 10/25/19 [Rx] Ibuprofen [Motrin] 600 mg PO Q6HR PRN #40 tab 10/25/19 [Rx] Iron Ag/C/B12/Ca/Suc.acid/Stom [Multigen] 1 each PO DAILY #30 tab 10/25/19 [Rx] Follow up Appointment(s)/Referral(s): Benja Gay DO [Doctor of Osteopathic Medicine] - 10/30/19 3:30 pm (Patient also has a visit on December 04 at 11 AM.) Patient Instructions/Handouts: (DC), Iron Deficiency Anemia (DC) Activity/Diet/Wound Care/Special Instructions: No heavy lifting or strenuous activity for 6 weeks. No intercourse or anything per vagina for 6 weeks. Please call if any fever, chills, excessive vaginal bleeding, and/or abdominal pain.
[2019-10-25 09:53] VITALS: BP 118/72; PULSE 97; TEMP 98.3
[2019-10-25] MEDS: IRON AG/C/B12/CA/SUC.ACID/STOM 1 EACH TAB PO SCH (14:38)
[2019-10-25] MEDS: HYDROcodone/APAP 7.5-325MG 1 EACH TAB PO PRN (14:47)
== END 2019-10-25 14:50 | disposition home or self-care (01) | DRG 788 ==
LOC: 4FBP 09:56
PROVIDERS: ADMIT Obstetrics & Gynecology; ATTEND Obstetrics & Gynecology
PROC: 0UN90ZZ Release Uterus, Open Approach (ICD-10-PCS; 2019-10-21)
PROC: 10D00Z1 Extraction of Products of Conception, Low, Open Approach (ICD-10-PCS; principal; 2019-10-21 12:00)
DX: O34.211 Maternal care for low transverse scar from previous cesarean delivery (principal); O99.02 Anemia complicating childbirth; D64.9 Anemia, unspecified; N73.6 Female pelvic peritoneal adhesions (postinfective); Z37.0 Single live birth; Z3A.39 39 weeks gestation of pregnancy
CPT/HCPCS: 85025; 86850; 86900; 86901

== ENCOUNTER 2021-01-09 11:59 | Emergency (ER) | payer OTHER ==
[2021-01-09 14:09] VITALS: RESP 18
--- NOTE | 2021-01-09 14:14 | ED ---
Lower Extremity Injury HPI - General Source: patient, RN notes reviewed Mode of arrival: ambulatory Limitations: no limitations <Jorge Barone - Last Filed: 01/09/21 14:13> - General Source: patient, RN notes reviewed Limitations: no limitations <Иван Talavera - Last Filed: 01/09/21 16:33> - General Chief Complaint: Extremity Injury, Lower Stated Complaint: Fall/foot injury - History of Present Illness Initial Comments: 25-year-old female presents to emergency department with left foot pain, she noted she was walking down porch steps on her right ankle rolled and she tried catching her body weight while caring acute with a left foot and heard a loud pop and snap noise. She denied any pain on the foot is not moving but it is tender to the touch on the lateral superior aspect. (Jorge Barone) Patient is a pleasant 25-year-old female presenting to the emergency Department with complaints of left foot discomfort. Patient states she tripped on steps around 5 days ago. Patient did roll her right ankle however that is doing fine. Patient did also injure her left foot, unclear exact mechanism. No other area of injury. No head injury or loss of consciousness. No neck or back pain. No abdominal pain or dyspnea. Patient has been unable to bear any weight on her left foot and has been using crutches. (Иван Talavera) - Related Data Home Medications Medication Instructions Recorded Confirmed Pnv No.95/Ferrous Fum/Folic AC 1 each PO DAILY 10/22/18 10/15/19 [ Multivitamin Tablet] Previous Rx's Medication Instructions Recorded HYDROcodone/APAP 7.5-325MG [[place] 1 each PO Q6H PRN #12 tab 10/25/19 7.5-325] Ibuprofen [Motrin] 600 mg PO Q6HR PRN #40 tab 10/25/19 Iron Ag/C/B12/Ca/Suc.acid/Stom 1 each PO DAILY #30 tab 10/25/19 [Multigen] Allergies Allergy/AdvReac Type Severity Reaction Status Date / Time No Known Allergies Allergy Verified 01/09/21 14:09 Review of Systems ROS Other: All systems not noted in ROS Statement are negative. <Jorge Barone - Last Filed: 01/09/21 14:13> ROS Other: All systems not noted in ROS Statement are negative. Constitutional: Denies: fever Eyes: Denies: eye pain ENT: Denies: ear pain Respiratory: Denies: cough Cardiovascular: Denies: chest pain Musculoskeletal: Reports: as per HPI <IlanИван - Last Filed: 01/09/21 16:33> ROS Statement: Those systems with pertinent positive or pertinent negative responses have been documented in the HPI. Past Medical History Past Medical History: No Reported History Additional Past Medical History / Comment(s): "fainting"; 06/2018 History of Any Multi-Drug Resistant Organisms: None Reported Past Surgical History: Appendectomy, Section, Orthopedic Surgery Additional Past Surgical History / Comment(s): Elbow surgery Past Anesthesia/Blood Transfusion Reactions: No Reported Reaction Past Psychological History: Anxiety, Depression Smoking Status: Never smoker Past Alcohol Use History: None Reported Past Drug Use History: None Reported - Past Family History Mother Family Medical History: No Reported History <Jorge Barone - Last Filed: 01/09/21 14:13> General Exam Limitations: no limitations General appearance: alert, in no apparent distress Head exam: Present: atraumatic, normocephalic, normal inspection Eye exam: Present: normal appearance, PERRL, EOMI. Absent: scleral icterus, conjunctival injection, periorbital swelling Neck exam: Present: normal inspection. Absent: tenderness, meningismus, lymphadenopathy Respiratory exam: Present: normal lung sounds bilaterally. Absent: respiratory distress, wheezes, rales, rhonchi, stridor Cardiovascular Exam: Present: regular rate, normal rhythm, normal heart sounds. Absent: systolic murmur, diastolic murmur, rubs, gallop, clicks GI/Abdominal exam: Present: soft, normal bowel sounds. Absent: distended, tenderness, guarding, rebound, rigid Extremities exam: Present: normal inspection, tenderness (Lateral aspect on the dorsal aspect of the left foot.), normal capillary refill. Absent: full ROM (Decreased range of motion due to pain.), pedal edema, joint swelling, calf tenderness Neurological exam: Present: alert, oriented X3, CN II-XII intact Psychiatric exam: Present: normal affect, normal mood Skin exam: Present: warm, dry, intact, normal color. Absent: rash <Jorge Barone - Last Filed: 01/09/21 14:13> Limitations: no limitations General appearance: alert, in no apparent distress Head exam: Present: atraumatic Eye exam: Present: normal appearance Neck exam: Present: normal inspection. Absent: tenderness Respiratory exam: Present: normal lung sounds bilaterally Cardiovascular Exam: Present: regular rate, normal rhythm Expanded Peripheral pulses: 2+: Dorsalis Pedis (L) GI/Abdominal exam: Present: soft. Absent: tenderness Extremities exam: Present: other (Patient with mild left foot swelling. Moderate tenderness of the midfoot. Distally the extremity is neurovascular intact. Good cap refill. Good sensation.) Back exam: Present: normal inspection. Absent: tenderness Neurological exam: Present: alert. Absent: motor sensory deficit Psychiatric exam: Present: normal affect, normal mood Skin exam: Present: normal color <Иван Talavera - Last Filed: 01/09/21 16:33> Course Vital Signs 01/09/21 01/09/21 14:05 16:06 Temperature 98.2 F 98.1 F Pulse Rate 88 78 Respiratory 18 18 Rate Blood Pressure 109/73 112/72 O2 Sat by Pulse 100 97 Oximetry Procedures - Orthopedic Splinting/Casting Injury #1 Side: left Lower Extremity Injury Location: foot Lower Extremity Immobilizer: posterior splint <Иван Talavera - Last Filed: 01/09/21 16:33> Medical Decision Making - Radiology Data Radiology results: image reviewed (Left foot x-ray does show concern for fractu res of the foot of the second third and fourth proximal metatarsal, nondisplaced. Virtually. Also appearance of fracture first cuneiform.) <Иван Talavera - Last Filed: 01/09/21 16:33> - Medical Decision Making Splint placed. Patient has crutches. Patient explained extreme importance of close follow-up with orthopedics and no weightbearing at all of the left foot. (Иван Talavera) Disposition <Jorge Barone - Last Filed: 01/09/21 14:13> Is patient prescribed a controlled substance at d/c from ED?: No Time of Disposition: 16:32 <Иван Talavera - Last Filed: 01/09/21 16:33> Clinical Impression: Lisfranc fracture Disposition: HOME SELF-CARE Condition: Stable Instructions (If sedation given, give patient instructions): Foot Fracture in Adults (ED) Additional Instructions: Please follow-up with orthopedics this week regarding foot fracture, preferably in the next day or 2. You will need further reinforcement and treatment for this fracture. No weightbearing at all on the left foot. This is extremely important, use crutches at all times. Return for increased pain, swelling, worsening or changing symptoms or other concerns. Referrals: Florentin Samuels MD [Primary Care Provider] - 1-2 days Jaylon Candelaria DO [Doctor of Osteopathic Medicine] - 1-2 days
--- NOTE | 2021-01-09 14:33 | XR ---
EXAMINATION TYPE: XR foot complete LT DATE OF EXAM: 01/09/2021 COMPARISON: NONE HISTORY: Pain TECHNIQUE: Frontal, lateral and oblique images of the right ankle are obtained. COMPARISON: None. FINDINGS: Virtually nondisplaced fractures are noted at the base of the second third and fourth metat arsals. There also appears to be fracture involving the first cuneiform. Associated soft tissue swell ing noted. The joint spaces appear within normal limits. IMPRESSION: Fractures as above.
[2021-01-09 16:07] VITALS: BP 112/72; PULSE 78; TEMP 98.1
== END 2021-01-09 16:56 | disposition home or self-care (01) ==
LOC: EC 11:59
DX: S92.202A Fracture of unspecified tarsal bone(s) of left foot, initial encounter for closed fracture (principal); X58.XXXA Exposure to other specified factors, initial encounter; F41.9 Anxiety disorder, unspecified; F32.9 Major depressive disorder, single episode, unspecified; Z79.1 Long term (current) use of non-steroidal anti-inflammatories (NSAID)
CPT/HCPCS: 29515; 99283

== ENCOUNTER → 2021-01-19 | Outpatient (CLI) | payer OTHER ==
--- NOTE | 2021-01-20 00:01 | MR ---
EXAMINATION TYPE: MR foot LT wo con DATE OF EXAM: 01/19/2021 COMPARISON: None HISTORY: Lt foot pain, sprain 01-04-21 Multiplanar multiecho imaging of the left foot was performed without contrast. There is patchy increased signal in the base of the first metatarsal on the T2 images. There is simil ar increased signal in the distal and proximal second metatarsal. There is moderate edema similarly i n the proximal fourth and third metatarsals. The fifth metatarsal is intact. There is small area of e delta in the neck of the third and fourth metatarsal. The toes appear intact. There is soft tissue swelling of the forefoot with subcutaneous edema around the MP joints. There is 1.5 cm area of edema involving the cuboidal bone. There is mild edema in the distal first and second cuneiform bones. There are nondisplaced fractures of the base of the second third and fourth metatars als. The calcaneus is intact. Talus is intact. Achilles tendon appears normal. Plantar fascia appears norm al. IMPRESSION: Fractures of the second third and fourth metatarsals without change in position compared to old foot x-ray. Edema also in the cuboidal bone and cuneiform bones as above. Edema in the distal metatarsals as abov e. There is probably also small intra-articular chip fracture of the lateral base of the first metata rsal.
== END | disposition home or self-care (01) ==
LOC: RADMRIMAIN 19:45
PROVIDERS: ATTEND Orthopaedic Surgery
DX: S92.322A Displaced fracture of second metatarsal bone, left foot, initial encounter for closed fracture (principal); S92.332A Displaced fracture of third metatarsal bone, left foot, initial encounter for closed fracture; S92.342A Displaced fracture of fourth metatarsal bone, left foot, initial encounter for closed fracture; R60.0 Localized edema

== ENCOUNTER 2023-02-12 10:06 | Inpatient (IN) | payer BC, OTHER ==
[2023-02-12] MEDS: LACTATED RINGERS 1,000 ML IV SCH ×5 (10:30→22:21)
[2023-02-12] MEDS ORDERED: CARBOPROST TROMETHAMINE 250 MCG/ML 1 ML AMP IM PRN ×2 (10:40→10:41)
[2023-02-12] MEDS ORDERED: OXYTOCIN 10 UNIT/ML 1 ML VIAL IM PRN ×2 (10:40→10:41)
[2023-02-12] MEDS ORDERED: miSOPROStoL 200 MCG TAB PO PRN ×2 (10:40→10:41)
[2023-02-12] MEDS ORDERED: CITRIC ACID-SODIUM CITRATE 15 ML CUP PO ONE (10:40)
[2023-02-12] MEDS ORDERED: TRANEXAMIC ACID IN NACL,ISO-OS 1,000 MG in EMPTY BAG 1 BAG IV PRN ×2 (10:40→10:41)
[2023-02-12] MEDS ORDERED: METHYLERGONOVINE 0.2 MG/ML 1 ML AMP IM PRN ×2 (10:40→10:41)
[2023-02-12] MEDS ORDERED: LIDOCAINE 0.5% (PF) 5 MG/ML (50 ML SDV) SQ PRN (10:41)
[2023-02-12] MEDS ORDERED: TERBUTALINE 1 MG/ML VIAL SQ PRN (10:41)
[2023-02-12 11:14] LABS: Basophils % (A) 0 %; Eosinophils # (A) 0.1 k/uL (0-0.7); Eosinophils % (A) 1 %; HCT 28.4 % (34.0-46.0); HGB 9.1 gm/dL (11.4-16.0); Hypochromasia Moderate; Lymphocytes # (A) 2.1 k/uL (1.0-4.8); Lymphocytes % (A) 17 %; MCH 22.1 pg (25.0-35.0); MCV 69.2 fL (80.0-100.0); Mean Platelet Volume 7.4; Microcytosis Marked; Monocytes # (A) 0.4 k/uL (0-1.0); Monocytes % (A) 3 %; Neutrophils # (A) 9.3 k/uL (1.3-7.7); Neutrophils % (A) 76 %; Platelet Count 319 k/uL (150-450); Poikilocytosis Slight; RDW 15.7 % (11.5-15.5); WBC 12.2 k/uL (3.8-10.6)
[2023-02-12] MEDS ORDERED: ONDANSETRON 4 MG/2 ML VIAL ONE (12:23)
[2023-02-12] MEDS ORDERED: KETOROLAC 15 MG/ML 1 ML VIAL ONE (12:23)
[2023-02-12] MEDS ORDERED: PHENYLEPHRINE-0.9% NACL SYG 1,000 MCG/10 ML SYRINGE ONE (12:23)
[2023-02-12] MEDS ORDERED: MORPHINE SULFATE (PF) 0.3 MG/0.3 ML SYR ONE (12:23)
[2023-02-12] MEDS ORDERED: OXYTOCIN 30 UNITS/500 ML NS BAG IV ONE (12:23)
[2023-02-12] MEDS ORDERED: MORPHINE SULFATE 2 MG/ML SYRINGE IVP PRN (12:59)
[2023-02-12] MEDS ORDERED: ONDANSETRON 4 MG/2 ML VIAL IVP PRN (12:59)
[2023-02-12] MEDS ORDERED: NALOXONE 0.4 MG/ML 1 ML VIAL IV PRN (12:59)
[2023-02-12] MEDS ORDERED: diphenhydrAMINE 25 MG CAP PO PRN (13:28)
[2023-02-12] MEDS ORDERED: SIMETHICONE 80 MG CHEWABLE PO PRN (13:28)
[2023-02-12] MEDS ORDERED: diphenhydrAMINE 50 MG CAP PO PRN (13:28)
[2023-02-12] MEDS ORDERED: ZOLPIDEM 5 MG TAB PO PRN (13:28)
[2023-02-12] MEDS ORDERED: KETOROLAC 15 MG/ML 1 ML VIAL IVP PRN (13:28)
[2023-02-12] MEDS ORDERED: diphenhydrAMINE 50 MG/ML 1 ML VIAL IVP PRN (13:28)
[2023-02-12] MEDS ORDERED: METOCLOPRAMIDE 5 MG/ML 2 ML VIAL IVP PRN (13:28)
[2023-02-12] MEDS ORDERED: OXYTOCIN 30 UNITS/500 ML NS 30 UNIT in SALINE 1 500ML.BAG IV SCH (13:30)
--- NOTE | 2023-02-12 13:33 | P.HPOB ---
History of Present Illness H&P Date: 02/12/23 Chief Complaint: 39-0/7 weeks, previous section x2, requesting repeat the patient is a 27-year-old 4 para 2011 admitted at 39-0/7 weeks as established by a late ultrasound. She is admitted for repeat low transverse section having previously undergone 2 sections and requesting repeat. Her has been otherwise uncomplicated aside from late care. She does have a history of herpes simplex for which she has been prophyla xis and 36 weeks. On labor and delivery, all signs reassuring with a category 1 heart rate tracing. Group B strep status is negative. Obstetrical history: 4 para 2011 with 2 previous sections at term. Current statistics are listed in history of present illness. EDC of 02/19/2023 was established by ultrasound. Laboratory workup demonstrates a blood type of B+ with a negative antibody screen. Rubella status is immune. The remainder of the laboratory workup was within normal limits. One hour Glucola was normal and group B strep status is negative. Gynecologic history: Unremarkable with no history of any infections to include STDs aside from the history of HSV for which she has had no lesions during the and has been prophylaxis since 36 weeks. Review of Systems review of systems is confined to history of present illness. Past Medical History Past Medical History: No Reported History, GERD/Reflux Additional Past Medical History / Comment(s): "fainting"; 06/2018 History of Any Multi-Drug Resistant Organisms: None Reported Past Surgical History: Appendectomy, Section, Orthopedic Surgery Additional Past Surgical History / Comment(s): left Elbow surgery Past Anesthesia/Blood Transfusion Reactions: No Reported Reaction Additional Past Anesthesia/Blood Transfusion Reaction / Comment(s): no blood tranfusions Past Psychological History: Anxiety, Depression Smoking Status: Never smoker Past Alcohol Use History: None Reported Past Drug Use History: None Reported - Past Family History Mother Family Medical History: No Reported History Medications and Allergies Home Medications Medication Instructions Recorded Confirmed Type Pnv No.95/Ferrous Fum/Folic AC 1 each PO DAILY 10/22/18 02/12/23 History [ Multivitamin Tablet] Iron Ag/C/B12/Ca/Suc.acid/Stom 1 each PO DAILY #30 tab 10/25/19 02/12/23 Rx [Multigen] Sertraline [Zoloft] 100 mg PO HS 02/05/23 02/12/23 History valACYclovir HCL [Valtrex] 500 mg PO DAILY 02/12/23 02/12/23 History Allergies Allergy/AdvReac Type Severity Reaction Status Date / Time saurabh Allergy Swelling Uncoded 02/12/23 10:38 Exam Vital Signs Temp Pulse Resp BP Pulse Ox 02/12/23 10:38 97.8 F 120 H 18 121/60 98 Intake and Output 02/11/23 02/12/23 02/12/23 22:59 06:59 14:59 Other: Weight 91.172 kg in general, this is a well-developed, well-nourished white female in no acute distress. Her heart has a regular rhythm and rate without murmur. Her lungs clear to auscultation bilaterally in all duggan. Her abdomen is nondistended, gravid, has normal active bowel sounds, soft, nontender, and without any palpab le masses aside from uterine fundus. Her extremities are without any cyanosis, clubbing, or edema and are nontender to palpation bilaterally. Digital cervical examination is deferred. Results Result Diagrams: 02/12/23 10:58 Abnormal Lab Results - Last 24 Hours (Table) 02/12/23 Range/Units 10:58 WBC 12.2 H (3.8-10.6) k/uL Hgb 9.1 L (11.4-16.0) gm/dL Hct 28.4 L (34.0-46.0) % MCV 69.2 L (80.0-100.0) fL MCH 22.1 L (25.0-35.0) pg RDW 15.7 H (11.5-15.5) % Neutrophils # 9.3 H (1.3-7.7) k/uL Assessment and Plan (1) Previous section Current Visit: Yes Status: Acute Code(s): Z98.891 - HISTORY OF UTERINE SCAR FROM PREVIOUS SURGERY SNOMED Code(s): 986866827 (2) Term Current Visit: Yes Status: Acute Code(s): Z34.90 - ENCNTR FOR SUPRVSN OF NORMAL , UNSP, UNSP TRIMESTER SNOMED Code(s): 50402019 Plan: the patient is admitted for repeat low transverse section. The risks and complications have been discussed and she is understood and agreed to proceed.
--- NOTE | 2023-02-12 13:42 | P.OP ---
Date of Procedure: 02/12/23 Preoperative Diagnosis: #1. 39-0/7 weeks, previous x2 Postoperative Diagnosis: same plus #2. Moderate pelvic adhesive disease Procedure(s) Performed: #1. Repeat low transverse section #2. Lysis of adhesions Anesthesia: spinal Surgeon: Cj Wood [employer] Magistrate #1: Maria Elena Oconnor Estimated Blood Loss (ml): 648 IV fluids (ml): 1,000 Urine output (ml): 200 Pathology: none sent Condition: stable Disposition: floor Operative Findings: the patient was taken the operating room where she was delivered of a viable 8 lbs. 1 oz. baby girl with Apgars of 8 at 1 minute and 9 at 5 minutes. There was a nuchal cord 1 which was reduced after delivery of the head. The placenta was delivered manually, intact, and grossly normal with a grossly normal three- vessel cord. There was a moderate amount of scarring from the uterus to the anterior abdominal wall above the level of the fascial incision and to the right side of it. These were ultimately lysed and any bleeding made hemostatic with the Bovie as well as a lgegze-kq-zsatt stitch of 0 chromic catgut. A piece of Interceed was placed over the bulk of the area on the lower part of the fundus anteriorly to attempt to keep it from scarring again. Description of Procedure: the patient was prepped and draped in usual fashion after spinal anesthesia was administered by the anesthesiologist. A Pfannenstiel incision was made through pre-existing scar and extended into the abdominal cavity with some difficulty encountered at the level of the fascia and rectus muscle secondary to dense scarring at the sites. After entering the peritoneal cavity, there is no significant scarring at the level of the bladder but there was dense scarring above the level of the incision from the uterine fundus to the anterior abdominal wall which is perhaps 4 cm x 3 cm in size. There was additionally less dense but nevertheless present adhesive disease in the right adnexal region which was primarily filmy in nature. Once the abdomen was entered, site was selected in the midline well above the level of the bladder where a 2 cm incision was made in the transverse plane of the lower uterine segment to enter the uterus at which time clear fluid was noted. Incision was extended in both directions using the bandage scissors. The head was very difficult to deliver up and through the incision secondary to lack of labor and on difficult angles. A mighty Vac vacuum cup was applied to the occiput and that was elevated through the incision. The nose and mouth were thoroughly suctioned. The remainder of the was delivered onto the field after reducing a nuchal cord 1. The cord was doubly clamped, cut, and the passed resuscitative measures with weight and Apgars as noted above. A segment of cord was doubly clamped and cut and set aside should cord gases become necessary. The placenta was delivered manually and intact as noted above. the interior cavity of the uterus was swept of any remaining placental or membranous fragments. The margins of the uterine incision were grasped with Choi clamps and uterus left in situ. Incision was closed with 2 layers of 0 chromic catgut, the first being a running locking stitch followed by a running imbricating and occasionally locking stitch, each from margin to margin. There was noted to be some bleeding from the adhesion above the fascial incision prompting the decision to lyse the adhesion. This was done sharply with a Bovie. Once the adhesion had been lysed the right-sided filmy adhesions were noted and were also lysed sharply with the Bovie. This allowed the uterus to then be exteriorized and the adhesive area carefully examined. There was some ongoing bleeding which was made hemostatic initially with a wltzsp-is-oicuv stitch of 0 chromic catgut deep into the myometrium and then small points of bleeding were made hemostatic with the Bovie. The uterine and ovarian findings were normal as noted above. The posterior cul-de-sac was suctioned with a guard. There was noted to be some ongoing bleeding on the left side of the incision which was made hemostatic with grlegc-[id number]-pwlmp stitches of 0 chromic catgut as well as a short running stitch of 0 chromic catgut. The uterus was replaced within the abdominal cavity after suctioning. The gutters were swept of any remaining blood, fluid, or clot. The incision was reexamined and found to be hemostatic. The abdominal wall was elevated off of the uterine incision and the layer of Interceed placed across the adhesive area on the uterus. The l celia of muscles were examined and found to be hemostatic. The parietal perineum was loosely reapproximated and the fascia closed with 2 running stitches of 0 Vicryl proceeding from the lateral margins to the midpoint. The subcutaneous tissues were irrigated, made hemostatic with the Bovie, and reapproximated with a running stitch of 30 plain catgut. The skin was reapproximated with a running subcuticular stitch of 4-0 Vicryl followed by half-inch Steri-Strips placed with Mastisol. Quantitative blood loss for the case was 648 mL. There were no complications. All sponge, instrument, needle counts were correct. the patient tolerated the procedure well and proceeded to the recovery room in stable condition. Both mother and are resting comfortably in recovery.
[2023-02-12] MEDS: diphenhydrAMINE 50 MG/ML 1 ML VIAL IVP PRN ×2 (14:54→22:24)
[2023-02-12] MEDS: ACETAMINOPHEN TAB 500 MG TAB PO SCH ×2 (17:01→23:22)
[2023-02-12] MEDS: IBUPROFEN 600 MG TAB PO SCH (20:02)
[2023-02-12] MEDS: SENNOSIDES-DOCUSATE SODIUM 1 EACH TAB PO SCH (20:03)
[2023-02-13] MEDS: IBUPROFEN 600 MG TAB PO SCH ×4 (03:59→21:00)
[2023-02-13] MEDS: ACETAMINOPHEN TAB 500 MG TAB PO SCH ×4 (04:41→21:43)
--- NOTE | 2023-02-13 06:11 | P.PN ---
Progress Note - Text Progress Note Date: 02/13/23 Postoperative day 1 from surgery and section with spinal Duramorph. Patient has been receiving acetaminophen and ibuprofen overnight. She had mild pruritus which she was given Benadryl. No mental status changes. No significant lower extremity weakness. She's been able to ambulate. Patient likely to be discharged home later today
[2023-02-13] MEDS: LACTATED RINGERS 1,000 ML IV SCH ×4 (06:52→20:59)
[2023-02-13 07:49] LABS: Anisocytosis Slight; Basophils % (A) 0 %; Eosinophils # (A) 0.2 k/uL (0-0.7); Eosinophils % (A) 1 %; HGB 8.2 gm/dL (11.4-16.0); Hypochromasia Moderate; Lymphocytes # (A) 2.1 k/uL (1.0-4.8); Lymphocytes % (A) 14 %; MCH 22.2 pg (25.0-35.0); MCHC 31.5 g/dL (31.0-37.0); MCV 70.6 fL (80.0-100.0); Mean Platelet Volume 7.4; Microcytosis Moderate; Monocytes # (A) 0.6 k/uL (0-1.0); Monocytes % (A) 4 %; Neutrophils # (A) 11.1 k/uL (1.3-7.7); Neutrophils % (A) 78 %; Platelet Count 266 k/uL (150-450); Poikilocytosis Slight; RBC 3.68 m/uL (3.80-5.40); RDW 16.1 % (11.5-15.5); WBC 14.3 k/uL (3.8-10.6)
--- NOTE | 2023-02-13 08:40 | P.PNOBGPC ---
Subjective - Subjective Patient reports: Reports appetite normal, Reports voiding normally, Reports pain well controlled, Reports ambulating normally : doing well, nursing well Objective - Vital Signs Latest vital signs: Vital Signs Temp Pulse Resp BP Pulse Ox 02/13/23 04:00 91 16 93/59 100 02/13/23 00:00 90 16 112/71 97 02/12/23 20:00 97.8 F 90 16 99/62 96 02/12/23 16:00 18 L 18 02/12/23 15:59 18 100 02/12/23 15:29 97.0 F L 81 18 101/57 100 02/12/23 14:59 91 16 101/61 98 02/12/23 14:29 92 18 100/56 99 02/12/23 14:14 96.8 F L 89 18 110/58 98 02/12/23 13:59 97.2 F L 77 18 104/59 98 02/12/23 13:41 96.9 F L 85 18 105/56 99 02/12/23 13:29 97.2 F L 88 16 102/56 98 02/12/23 10:38 97.8 F 120 H 18 121/60 98 Intake and Output 02/12/23 02/13/23 02/13/23 22:59 06:59 14:59 Output Total 750 1200 Balance -750 -1200 Output: Urine 650 1200 Uretheral ([place]) 350 Estimated Blood Loss 100 Other: Voiding Method Indwelling Catheter - Exam Extremities: Present: normal Abdomen: Present: normal appearance, soft. Absent: distention, tenderness Incision: Present: normal, dry, intact Uterus: Present: normal, firm (Uterine fundus is tonic and appropriately tender at the umbilicus.) - Labs Labs: Abnormal Lab Results - Last 24 Hours (Table) 02/12/23 02/13/23 Range/Units 10:58 07:11 WBC 12.2 H 14.3 H (3.8-10.6) k/uL RBC 3.68 L (3.80-5.40) m/uL Hgb 9.1 L 8.2 L (11.4-16.0) gm/dL Hct 28.4 L 26.0 L (34.0-46.0) % MCV 69.2 L 70.6 L (80.0-100.0) fL MCH 22.1 L 22.2 L (25.0-35.0) pg RDW 15.7 H 16.1 H (11.5-15.5) % Neutrophils # 9.3 H 11.1 H (1.3-7.7) k/uL Assessment and Plan (1) Previous section Current Visit: Yes Status: Acute Code(s): Z98.891 - HISTORY OF UTERINE SCAR FROM PREVIOUS SURGERY SNOMED Code(s): 895297164 (2) Term Current Visit: Yes Status: Acute Code(s): Z34.90 - ENCNTR FOR SUPRVSN OF NORMAL , UNSP, UNSP TRIMESTER SNOMED Code(s): 44138937 (3) S/P section Current Visit: Yes Status: Acute Code(s): Z98.891 - HISTORY OF UTERINE SCAR FROM PREVIOUS SURGERY SNOMED Code(s): 012735824 Plan: Continue routine postoperative and care. I would anticipate discharge home tomorrow pending no complications.
[2023-02-13] MEDS: SENNOSIDES-DOCUSATE SODIUM 1 EACH TAB PO SCH ×2 (09:17→21:43)
[2023-02-13] MEDS: diphenhydrAMINE 50 MG/ML 1 ML VIAL IVP PRN (09:18)
[2023-02-14 00:21] VITALS: BP 97/61
[2023-02-14] MEDS: LACTATED RINGERS 1,000 ML IV SCH (00:21)
[2023-02-14] MEDS: IBUPROFEN 600 MG TAB PO SCH (04:11)
[2023-02-14] MEDS: ACETAMINOPHEN TAB 500 MG TAB PO SCH (08:00)
[2023-02-14] MEDS: SENNOSIDES-DOCUSATE SODIUM 1 EACH TAB PO SCH (08:01)
[2023-02-14 08:08] VITALS: PULSE 132; RESP 40; TEMP 98.8
--- NOTE | 2023-02-14 08:45 | P.DS ---
Providers Date of admission: 02/12/23 10:06 Expected date of discharge: 02/14/23 Attending physician: Cj Wood Primary care physician: Stated None - Discharge Diagnosis(es) (1) Previous section Current Visit: Yes Status: Acute (2) Term Current Visit: Yes Status: Acute (3) S/P section Current Visit: Yes Status: Acute Hospital Course: The patient is a 27-year-old 4 para 2011 admitted at 39-0/7 weeks by late ultrasound. She is admitted for repeat low transverse section with a history of 2 previous. Her was otherwise uncomplicated aside from fairly late care. 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 On labor and delivery, all signs were reassuring with a category 1 heart rate tracing. Group B strep status is negative. She was taken the operating room where she was found to have moderate adhesive disease primarily at the level of the fascia and muscles but additionally between the uterus and the anterior abdominal wall. She was ultimately delivered of a viable 8 lbs. 1 oz. baby girl with Apgars of 8 at 1 minute and 9 at 5 minutes. Her and postoperative course was unrema rkable with vital signs being stable and her temperature was afebrile throughout. She was deemed stable for discharge on postoperative and day #2 and was discharged home to follow-up in the office in 2 weeks for an incision check and 6 weeks routinely. Discharge instructions included calling for any significantly increased bleeding or foul-smelling lochia, significantly increased fever abdominal pain, perineal complaints, breast complaints, incisional complaints, or anything else that concerned her. She was additionally instructed to have nothing in the vagina for at least 6 weeks time to include intercourse and to abstain from any heavy lifting over the same period of time. She was lastly instructed to do no driving until off of all pain medications or 2 weeks' time, whichever came first. She understood her instructions and agrees to follow up as noted above. Discharge medications included a prescription for Wilmont 5/325 mg, 1-2 by mouth every 6 hours when necessary pain, #20 dispensed with no refills. She was additionally to use [id number] analgesic pain medications. She, at her final visit, gave a repeat urine culture which has since returned positive for E. coli. As a result, she has also been provided with a prescription for Macrobid twice daily for 7 days. Maternal blood type is B+ and rubella status is immune. Discharge hemoglobin and hematocrit were 8.2 and 26.0 respectively. She was encouraged to take iron sulfate daily for the next month in order to improve her anemic state. Procedures: #1. Repeat low transverse section #2. Lysis of adhesions Patient Condition at Discharge: Stable Plan - Discharge Summary Discharge Rx Participant: No New Discharge Prescriptions: No Action Pnv No.95/Ferrous Fum/Folic AC [ Multivitamin Tablet] 1 each PO DAILY Iron Ag/C/B12/Ca/Suc.acid/Stom [Multigen] 1 each PO DAILY #30 tab valACYclovir HCL [Valtrex] 500 mg PO DAILY Sertraline [Zoloft] 100 mg PO HS Discharge Medication List Pnv No.95/Ferrous Fum/Folic AC [ Multivitamin Tablet] 1 each PO DAILY 10/22/18 [History] Iron Ag/C/B12/Ca/Suc.acid/Stom [Multigen] 1 each PO DAILY #30 tab 10/25/19 [Rx] Sertraline [Zoloft] 100 mg PO HS 02/05/23 [History] valACYclovir HCL [Valtrex] 500 mg PO DAILY 02/12/23 [History] Follow up Appointment(s)/Referral(s): Cj Wood MD [STAFF PHYSICIAN] - 2 Weeks Discharge Disposition: HOME SELF-CARE
== END 2023-02-14 10:15 | disposition home or self-care (01) | DRG 787 ==
LOC: 4FBP 10:06
PROVIDERS: ADMIT Obstetrics & Gynecology; ATTEND Obstetrics & Gynecology
PROC: 0DNW0ZZ Release Peritoneum, Open Approach (ICD-10-PCS; 2023-02-12)
PROC: 10D00Z1 Extraction of Products of Conception, Low, Open Approach (ICD-10-PCS; principal; 2023-02-12 12:00)
DX: O34.211 Maternal care for low transverse scar from previous cesarean delivery (principal); O98.52 Other viral diseases complicating childbirth; O69.81X0 Labor and delivery complicated by cord around neck, without compression, not applicable or unspecified; F32.A Depression, unspecified; F41.9 Anxiety disorder, unspecified; N73.6 Female pelvic peritoneal adhesions (postinfective); L29.9 Pruritus, unspecified; O99.02 Anemia complicating childbirth; D64.9 Anemia, unspecified; O99.344 Other mental disorders complicating childbirth; A60.09 Herpesviral infection of other urogenital tract; K21.9 Gastro-esophageal reflux disease without esophagitis; O99.62 Diseases of the digestive system complicating childbirth; O99.73 Diseases of the skin and subcutaneous tissue complicating the puerperium; O99.892 Other specified diseases and conditions complicating childbirth; Z37.0 Single live birth; Z3A.39 39 weeks gestation of pregnancy; Z91.018 Allergy to other foods
CPT/HCPCS: 85025; 86850; 86900; 86901